=== PATIENT | female | born 1950 | race Caucasian/White ===

== ENCOUNTER → 2016-11-30 | Outpatient (CLI) | payer BC ==
[~2016-11-30] MED LIST: B COMPLEX1 CA1 PO; CITRACAL + D CA1 TA1 PO; CITRACAL200 MG; DAILY VALUE1 EACH PO; FISH OIL 1,0001 CAP; FISH OIL 1,0001 CAP PO; FLAXSEED OIL1000 M1; GARLIC TAB; GARLIC1 CAP PO; MULTI-DAY VITAM1 TAB; NATURAL VITA200 UNI1 PO; OMEPRAZOLE40 MG; VITAMIN B12; VITAMIN E
--- NOTE | ~2016-11-30 | CR144 ---
[facility] A Service of [facility] RADIOLOGY TEXT RESULTS PATIENT: ROHIT MOCK LOCATION: [facility] : 54 UNIT #: [id number] AGE: [address]: Verna Santos MD SEX: F ORDER DR: [id number] [facility] [address] [place], [place] [address] [id number] O MR#: [id number] Acc #: [id number] NAME: ROHIT MOCK : 1950 SEX: F STUDY DATE/TIME: 11/30/2016 16:25 UNIT: [facility] ROOM: STUDY DESCRIPTION: CR Hip 1 View Lt Attending Physician: Verna Santos M.D. Referring Physician: Verna Santos M.D. Ordering Physician: Verna Santos M.D. Primary Care Physician: Verna Santos M.D. MEDICAL IMAGING REPORT This report is preliminary unless electronic signature is present EXAM Left hip series 11/30/2016 HISTORY Pain. 1 month duration. No injury. FINDINGS AP radiograph of pelvis presented with frog-leg view left hip. [id number] degenerative change suggested lower lumbar spine. Bony ring of pelvis intact. The bilateral hip joints are intact. Minimal joint space narrowing bilaterally. Bilateral proximal femurs intact. Periarticular soft tissues unremarkable. Bowel gas pattern normal. Calcified phleboliths in pelvis. Dictated by... Eliel Chairez M.D. THIS IS AN ELECTRONICALLY VERIFIED REPORT Eliel Chairez M.D. at 12/01/2016 6:14 PM Tamir TD: 12/01/2016 08:59 JOB #: [id number] MEDICAL IMAGING REPORT Page 1 of 1 COPY
--- NOTE | ~2016-11-30 | CR184 ---
[facility] A Service of [facility] & [facility] RADIOLOGY TEXT RESULTS PATIENT: ROHIT MOCK LOCATION: [facility] : 54 UNIT #: [id number] AGE: [address]: Verna Santos MD SEX: F ORDER DR: [id number] [facility] [address] [place], [place] [address] [id number] O MR#: [id number] Acc #: [id number] NAME: ROHIT MOCK : 1950 SEX: F STUDY DATE/TIME: 11/30/2016 16:06 UNIT: [facility] ROOM: STUDY DESCRIPTION: CR Lumbar Spine Min 4 Views Attending Physician: Verna Santos M.D. Referring Physician: Verna Santos M.D. Ordering Physician: Verna Santos M.D. Primary Care Physician: Verna Santos M.D. MEDICAL IMAGING REPORT This report is preliminary unless electronic signature is present EXAM Lumbar spine 6 views 11/30/2016 HISTORY Low back pain and left hip pain for 1 month with no known injury. FINDINGS Six views of the lumbar spine were obtained including flexion and extension views. In the neutral position and extension, there is 2 mm anterolisthesis of L4 on L5. This increases with flexion to approximately 5 mm. The remainder of the posterior vertebral body line is intact. The disc spaces are normally maintained. Anterior osteophytes are seen at L4-L5 and there is degenerative change involving articular facets from L3-S1. Dictated by... Ricardo Mosquera M.D. THIS IS AN ELECTRONICALLY VERIFIED REPORT Ricardo Mosquera M.D. at 12/02/2016 7:46 AM CHRISTINA/cristian TD: 12/01/2016 11:24 JOB #: [id number] MEDICAL IMAGING REPORT Page 1 of 1 COPY
== END | disposition home or self-care (01) ==
LOC: CRAD 15:55
DX: M54.5 Low back pain (principal); M25.551 Pain in right hip
CPT/HCPCS: 72110; 73501

== ENCOUNTER → 2017-01-05 | Outpatient (CLI) | payer BC ==
--- NOTE | ~2017-01-05 | MY29 ---
[facility] A Service of [facility] RADIOLOGY TEXT RESULTS PATIENT: ROHIT MOCK LOCATION: [facility] : 54 UNIT #: [id number] AGE: [address]: Argenis Moore MD SEX: F ORDER DR: [id number] [facility] [address] [place], [place] [address] [id number] O MR#: [id number] Acc #: [id number] NAME: ROHIT MOCK : 1950 SEX: F STUDY DATE/TIME: 01/05/2017 10:11 UNIT: [facility] ROOM: STUDY DESCRIPTION: MY ANTONIA SCREENING W/ CAD BILAT Attending Physician: Graham Moore M.D. Ordering Physician: Graham Moore M.D. Primary Care Physician: Verna Santos M.D. MEDICAL IMAGING REPORT This report is preliminary unless electronic signature is present EXAM Digital screening mammogram 01/05/2017 HISTORY 66-year-old woman positive family history, maternal aunts. Annual screen. COMPARISON Mammograms date to 12/01/2005 with most recent screening comparison 06/19/2014. FINDINGS Digital imaging of each breast was completed utilizing a two-view examination of each breast in craniocaudal and mediolateral-oblique projections. Review and interpretation of digital mammograms include a second review in conjunction with FDA-approved CAD device. There is a normal parenchymal presentation bilaterally consistent with the patient's age. There are no breast masses imaged and no parenchymal asymmetry is visualized. There are no suspicious microcalcifications and I see no focal architectural disturbance. IMPRESSION Negative screening digital mammogram. One-year followup recommended. Patients over the age of 40 are entered into a reminder system with target due date for the next mammogram. A result letter will also be sent to the patient. BIRADS: 1 Negative Dictated by... Jayro Plummer M.D. [facility] A Service of [facility] RADIOLOGY TEXT RESULTS PATIENT: ROHIT MOCK LOCATION: [facility] : 54 UNIT #: [id number] AGE: [address]: Argenis Moore MD SEX: F ORDER DR: THIS IS AN ELECTRONICALLY VERIFIED REPORT Jayro Plummer M.D. at 01/05/2017 12:46 PM Ca TD: 01/05/2017 11:01 JOB #: [id number] MEDICAL IMAGING REPORT Page 1 of 1 COPY
== END | disposition home or self-care (01) ==
LOC: CWCC 09:45
DX: Z12.31 Encounter for screening mammogram for malignant neoplasm of breast (principal); Z80.3 Family history of malignant neoplasm of breast
CPT/HCPCS: G0202